=== PATIENT | female | born 1975 | race Caucasian/White ===

== ENCOUNTER 2019-03-27 15:06 | Emergency (ER) | payer SELFPAY ==
[~2019-03-27 15:06] MED LIST: METF-960 PO
== END 2019-03-27 15:42 | disposition left against medical advice (07) ==
LOC: EMS 15:07
DX: R30.0 Dysuria (principal); E11.9 Type 2 diabetes mellitus without complications; J45.909 Unspecified asthma, uncomplicated; F12.90 Cannabis use, unspecified, uncomplicated; F17.210 Nicotine dependence, cigarettes, uncomplicated; Z88.8 Allergy status to other drugs, medicaments and biological substances; Z79.84 Long term (current) use of oral hypoglycemic drugs